=== PATIENT | female | born 1985 | race Caucasian/White ===

== ENCOUNTER 2019-01-01 17:51 | Emergency (ER) | payer OTHER ==
--- NOTE | 2019-01-01 18:25 | ED ---
Hypertension - HPI Summary HPI Summary: 33-year-old female presents with complaints of elevated blood pressure. Patient states that she was recently visiting [place] and developed a bull's-eye rash on 12/17/2018 and self diagnosed herself with Lyme disease. She obtained an [id number] prescription for doxycycline and started this on 12/21/2018. States that on 12/23/2018 she was evaluated by a infectious disease physician who confirmed her diagnosis including receiving a blood test. Patient states that on 12/25/2018 she started feeling lightheaded and dizzy, had some "chest tightness", and felt a little shortness of breath. She was supposed to fly back to the [place] on 12/26/2018 however was feeling worse and went to see a manager [employer] who noted that her blood pressure was elevated at that time. He prescribed her catopril. She took a single dose that day states she did feel little better but she has not taken any further doses. She is continue to take the doxycycline and feels like her symptoms worsened. She is presently complaining of feeling lightheaded and dizzy with some mild nausea. No chest pain or shortness of breath at present. Patient does endorse having anxiety especially over help concerns. Denies headache, visual disturbances, slurred or difficulty speaking, facial droop, numbness, tingling, or weakness of the extremities, palpitations, abdominal pain, vomiting, or diarrhea. - History of Current Complaint Chief Complaint: EDHypertension Stated Complaint: ALLERGIC REACTION PER PT Time Seen by Provider: 01/01/19 18:15 Hx Obtained From: Patient Hx Last Menstrual Period: NOW - Allergies/Home Medications Allergies/Adverse Reactions: Allergies Allergy/AdvReac Type Severity Reaction Status Date / Time No Known Allergies Allergy Verified 05/04/15 20:53 PMH/Surg Hx/FS Hx/Imm Hx Previously Healthy: Yes Infectious Disease History: No Infectious Disease History: Reports: Traveled Outside the [place] in Last 30 Days - [place] - Social History Alcohol Use: Daily Alcohol Amount: 2 DRINKS/DAY Substance Use Type: Reports: None Smoking Status (MU): Current Every Day Smoker Type: Cigarettes Amount Used/How Often: 1/2 PPD Review of Systems All Other Systems Reviewed And Are Negative: Yes Physical Exam - Summary Physical Exam Summary: GENERAL APPEARANCE: Well developed, well nourished, alert and cooperative, and appears to be very anxious but in no acute distress. EYES: Conjunctiva clear. No drainage. PERRL, EOM intact. Vision is grossly intact. EARS: External auditory canals and tympanic membranes clear, hearing grossly intact. NOSE: No nasal discharge. THROAT: Pharynx normal. No tonsilar inflammation, swelling, exudate, or lesions. Uvula midline. Oral cavity normal. Teeth and gingiva in good general condition. NECK: Neck supple, non-tender without lymphadenopathy. CARDIAC: Normal S1 and S2. No S3, S4 or murmurs. Rhythm is regular. There is no peripheral edema, cyanosis or pallor. Extremities are warm and well perfused. Capillary refill is less than 2 seconds. Peripheral pulses intact. LUNGS: Clear to auscultation without rales, rhonchi, wheezing or diminished breath sounds. ABDOMEN: Positive bowel sounds. Soft, nondistended, nontender. No guarding or rebound. No masses or hepatosplenomegally. MUSKULOSKELETAL: ROM intact to all extremities. No joint erythema or tenderness. Normal muscular development. Normal gait. NEUROLOGICAL: CN II-XII intact. Strength and sensation symmetric and intact throughout. Reflexes 2+ throughout. Cerebellar testing normal. SKIN: Skin normal color, texture and turgor with no lesions or eruptions. Triage Information Reviewed: Yes Vital Signs On Initial Exam: Initial Vitals Temp Pulse Resp BP Pulse Ox 97.9 F 91 16 178/122 100 01/01/19 17:53 01/01/19 17:53 01/01/19 17:53 01/01/19 17:53 01/01/19 17:53 Vital Signs Reviewed: Yes Diagnostics - Vital Signs Vital Signs Temp Pulse Resp BP Pulse Ox 01/01/19 17:53 97.9 F 91 16 178/122 100 - Laboratory Result Diagrams: 01/01/19 19:07 01/01/19 19:07 Lab Statement: Any lab studies that have been ordered have been reviewed, and results considered in the medical decision making process. - EKG No standard instances Cardiac Rate: Bradycardia - Rate 57 ST Segment: Normal Ectopy: None Hypertension Course/Dx - Course Course Of Treatment: 33-year-old female presents with complaints of elevated blood pressure. Patient states that she was recently visiting [place] and developed a bull's-eye rash on 12/17/2018 and self diagnosed herself with Lyme disease. She obtained an [id number] prescription for doxycycline and started this on 12/21/2018. States that on 12/23/2018 she was evaluated by a infectious disease physician who confirmed her diagnosis including receiving a blood test. Patient states that on 12/25/2018 she started feeling lightheaded and dizzy, had some "chest tightness", and felt a little shortness of breath. She was supposed to fly back to the [place] on 12/26/2018 however was feeling worse and went to see a manager [employer] who noted that her blood pressure was elevated at that time. He prescribed her catopril. She took a single dose that day states she did feel little better but she has not taken any further doses. She is continue to take the doxycycline and feels like her symptoms worsened. She is presently complaining of feeling lightheaded and dizzy with some mild nausea. No chest pain or shortness of breath at present. Patient does endorse having anxiety especially over help concerns. Denies headache, visual disturbances, slurred or difficulty speaking, facial droop, numbness, tingling, or weakness of the extremities, palpitations, abdominal pain, vomiting , or diarrhea. Afebrile. Patient was noted have an elevated blood pressure 170 /122 at triage but was also noted to be very anxious. The remainder of her vital signs were stable. Patient was alert and oriented, well-appearing, anxious but in no acute distress. She was neurologically intact and her exam was overall unremarkable. Twelve-lead EKG showed a sinus bradycardia at a rate of [address] elevation, T-wave abnormalities, or ectopy. Lab work showed a slightly elevated white blood cell count of 15.1, RBCs 4.99, mildly decreased K + of 3.4 and was otherwise stable. I reviewed these results with the patient. The patient's blood pressure began to normalize over the course of her stay. I discussed with the patient that hypertension is a known adverse reaction in about 3% of the population and therefore it is possible that her hypertension is related to this however we also discussed that it is likely there is a strong anxiety component to her symptoms. I am going to have the patient stop her doxycycline. Since she did not complete a full course to treat the Lyme disease I'm going to start her on amoxicillin 500 mg 3 times a day 10 days. I have instructed her to not take anymore of her blood pressure medication until she is seen in follow-up. Patient states that she currently does not have a primary care provider therefore I have instructed her to follow-up at the [facility] in 3-5 days. Anticipatory guidance and warning symptoms are reviewed with the patient. Verbalizes understanding and agrees with plan of care. - Diagnoses Differential Diagnosis/HQI PQRI: Hypertension, Hypertensive Urgency, Other - Adverse drug reaction Provider Diagnoses: Elevated blood pressure reading Discharge - Sign-Out/Discharge Documenting (check all that apply): Patient Departure Patient Received Moderate/Deep Sedation with Procedure: No - Discharge Plan Condition: Stable Disposition: HOME Prescriptions: Amoxicillin 500 mg PO TID #30 capsule Patient Education Materials: Hypertension (ED) Referrals: Abel Coates MD [Primary Care Provider] - [facility] [Outside] - 3 Days (Call tomorrow for appointment.) Additional Instructions: The EKG performed in the emergency room today was normal. Your lab work showed a slightly elevated white blood cell count, slightly elevated red blood cell count, and a mildly low potassium level. The remainder of your lab work was essentially unremarkable. Your blood pressure remained slightly elevated but was improved throughout the course of your stay. Since there is a chance that your elevated blood pressure is related to the doxycycline I'm going to heavy stop that at this time. Since we did not complete a full course of the doxycycline to treat the Lyme disease I'm going to start she was on amoxicillin 500 mg 3 times a day for 10 days. Do not take anymore of the blood pressure medication was prescribed to you until you follow up in the clinic. Follow-up in the [facility] in 3-5 days to have your blood pressure rechecked. Return to the emergency room if you have a sudden severe headache, visual disturbances, slurred or difficulty speaking, facial droop, numbness, tingling, or weakness in your arms or legs, develop confusion, chest pain, shortness of breath, persistent or projectile vomiting, or any worsening of symptoms. - Billing Disposition and Condition Condition: STABLE Disposition: Home
[2019-01-01 19:21] LABS: ABS Basophils 0.1 10^3/ul (0-0.2); ABS Eosinophils 0.2 10^3/ul (0-0.6); ABS Lymphocytes 3.2 10^3/ul (1.0-4.8); ABS Monocytes 0.9 10^3/ul (0-0.8); ABS Neutrophils 10.7 10^3/ul (1.5-7.7); Eosinophil % 1.6 %; Hematocrit 43 % (35-47); Hemoglobin 15.1 g/dL (12.0-16.0); Lymphocyte % 21.2 %; Mean Corpuscular HGB Conc 35 g/dL (31-36); Mean Corpuscular Hemoglobin 30 pg (27-31); Mean Corpuscular Volume 86 fL (80-97); Mean Platelet Volume 6.8 fL (7.4-10.4); Nucleated Red Blood Cells % 0.1; Platelet Count 425 10^3/uL (150-450); Red Blood Count 4.99 10^6 /uL (3.70-4.87); Red Cell Distribution Width 13 % (10-15); White Blood Count 15.1 10^3/uL (3.5-10.8)
[2019-01-01 19:32] LABS: Albumin 4.6 g/dL (3.2-5.2); Albumin/Globulin Ratio 1.8 (1-3); BUN/Creatinine Ratio 13.5 (8-20); Calcium 9.8 mg/dL (8.6-10.3); EGFR African American 87.9 (>60); EGFR Non-African American 72.6 (>60); Globulin 2.5 g/dL (2-4); Potassium 3.4 mmol/L (3.5-5.0); Total Protein 7.1 g/dL (6.4-8.9)
[2019-01-01 19:33] LABS: Urine Appearance Clear; Urine Bilirubin Negative (Negative); Urine Blood Negative (Negative); Urine Color Straw; Urine Glucose Negative (Negative); Urine Ketones Negative (Negative); Urine Nitrite Negative (Negative); Urine Protein Negative (Negative); Urine Specific Gravity 1.008 (1.010-1.030); Urine Urobilinogen Negative (Negative)
[2019-01-01 19:52] LABS: TSH (Thyroid Stimulating Horm) 1.37 mcIU/mL (0.34-5.60)
[2019-01-01 21:06] VITALS: BP 144/91
== END 2019-01-01 21:05 | disposition home or self-care (01) ==
LOC: ED 17:51
DX: R03.0 Elevated blood-pressure reading, without diagnosis of hypertension (principal); F17.210 Nicotine dependence, cigarettes, uncomplicated; A69.20 Lyme disease, unspecified; Z79.899 Other long term (current) drug therapy
CPT/HCPCS: 36415; 80053; 81003; 84443; 84484; 85025; 93005; 99283